=== PATIENT | female | born 1955 | race Caucasian/White ===

== ENCOUNTER → 2019-08-04 | Day surgery (SDC) | payer OTHER ==
[2019-08-03 16:11] LABS: BASOPHILS # (AUTO) 0.1 (0.0-0.1); BASOPHILS % 0.6 % (0.0-1.0); EOSINOPHILS # (AUTO) 0.3 (0.0-0.4); EOSINOPHILS % 3.7 % (0.0-6.0); HEMATOCRIT 42.3 % (34.2-44.1); HEMOGLOBIN 13.8 g/dL (12.0-16.0); LYMPHOCYTES % 22.9 % (18.0-39.1); MEAN CORPUSCULAR HEMOGLOBIN 27.9 pg (28-32); MEAN CORPUSCULAR HGB CONC 32.6 g/dL (31-35); MEAN CORPUSCULAR VOLUME 85.6 fL (81-99); MONOCYTES # (AUTO) 0.7 (0.2-0.8); MONOCYTES % 7.9 % (4.4-11.3); NEUTROPHILS # (AUTO) 5.7 (2.1-6.9); NEUTROPHILS % 63.9 % (38.7-80.0); PLATELET COUNT 250 x10e3/uL (140-360); RED BLOOD COUNT 4.94 x10e6/uL (3.6-5.1); RED CELL DISTRIBUTION WIDTH 14.6 % (11.7-14.4)
[2019-08-03 16:26] LABS: ANION GAP 14.9 mmol/L (8-16); BLOOD UREA NITROGEN 18 mg/dL (7-26); BUN/CREATININE RATIO 20 (6-25); CALCIUM 11.2 mg/dL (8.4-10.2); CARBON DIOXIDE 29 mmol/L (22-29); CHLORIDE 100 mmol/L (98-107); CREATININE, SERUM 0.89 mg/dL (0.57-1.11); EST GLOMERULAR FILTRATION RATE > 60 ML/MIN (60-); GLUCOSE 178 mg/dL (74-118); POTASSIUM 3.9 mmol/L (3.5-5.1); SODIUM 140 mmol/L (136-145)
--- NOTE | 2019-08-03 17:20 | Diagnostic Imaging Report ---
EXAMINATION: CHEST 2 VIEWS INDICATION: Pre-operative COMPARISON: None FINDINGS: LINES/TUBES:None LUNGS:The lungs are well-inflated. No focal consolidation or pulmonary edema. PLEURA:No pleural effusion or pneumothorax. MEDIASTINUM:The cardiomediastinal silhouette appears normal in size and shape. BONES/SOFT TISSUES:No acute osseous injury. Partially visualized cervical spine fusion hardware. ABDOMEN:No free air under the diaphragm. IMPRESSION: No focal pneumonia or pulmonary edema. Signed by: Tad Frausto MD on 08/03/2019 5:17 PM
[~2019-08-04] MED LIST: ASPIR 8181 MG PO; BUPIVACAINE HCL 0.5% INJ 30 ML VIAL INJ ONE; CELEBREX200 MG PO; CITALOPRAM HBR20 MG PO; CLINDAMYCIN PHOS 900MG/ 50ML 50 ML IV ONE; DEXAMETHASONE SOD PHOS INJ 4 MG/ML VIAL ONE; EPHEDRINE SULFATE INJ 50 MG/10 ML SYR ONE; FENTANYL CITRATE/PF 100MCG/2 ML INJ ONE; FIBER TABS625 MG PO; FOLIC ACID PO; GLIMEPIRIDE4 MG PO; KETOROLAC TROMETHAMINE 30 MG/ML VIAL ONE; LIDOCAINE HCL 2% LOCAL INJ 5 ML SDV VIAL INJ ONE; LOSARTAN-HCTZ1 EAC2 PO; LUTEIN20 M1 PO; MIDAZOLAM HCL 2 MG/2 ML VIAL ONE; MYRBETRIQ25 MG PO; NEOSTIGMINE 1 MG/ML 10ML VIAL ONE; ONDANSETRON HCL INJ 2MG/ML 2ML 2 MG/ML VIAL ONE; PROPOFOL IV EMULSION 10 MG/ML 20 ML VIAL ONE; SEVOFLURANE INHAL SOLN 250 ML PEN BTL ONE; STOOL SOFTENER1 EAC1 PO; VIT D3 PO
--- OUTSIDE RECORDS SUMMARY | 2019-08-04 07:41 | XMS REPORT ---
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 Allergies, Adverse Reactions, Alerts Allergy Name Allergy Type Status Severity Reaction(s) Onset Date Inactive Date Treating Clinician Comments Penicillins DA Active AK 2017-09-24 00:00:00 iodine DA Active SV 2017-09-24 00:00:00 Medications This patient has no known medications. Results Test Description Test Time Test Comments Text Results Atomic Results Result Comments CHEST 2 VIEWS 2019-08-03 17:16:00 [place] [address] Patient Name: SURINDER HARRISON MR #: [id number] : 1955 Age/Sex: 64/F Req #: [id number] Adm Physician: Ordered by: YOANNA AMBROSE DPM Report #: [id number] Location: OR Room/Bed: Procedure: [id number] DX/CHEST 2 VIEWS Exam Date: 08/03/19 Exam Time: 1628 REPORT STATUS: Signed EXAMINATION: CHEST 2 VIEWS INDICATION: Pre-operative COMPARISON: None FINDINGS: LINES/TUBES:None LUNGS:The lungs are well-inflated. No focal consolidation or pulmonary edema. PLEURA:No pleural effusion or pneumothorax. MEDIASTINUM:The cardiomediastinal silhouette appears normal in size and shape. BONES/SOFT TISSUES:No acute osseous injury. Partially visualized cervical spine fusion hardware. ABDOMEN:No free air under the diaphragm. IMPRESSION: No focal pneumonia or pulmonary edema. Signed by: Naomi Frausto MD on 08/03/2019 5:17 PM Dictated By: NAOMI FRAUSTO MD 16 Transcribed By: TSERING on 08/03/191716 COPY TO: YOANNA AMBROSE DPM
[2019-08-04 13:35] VITALS: BP 140/80
--- NOTE | 2019-08-05 02:13 | Operative Report ---
DATE OF PROCEDURE: 08/04/2019 SURGEON: Sushil Jacobson DPM ROOM NUMBERS: Outpatient. 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 TITLE OF THE OPERATION: Fusion first metatarsophalangeal joint, left foot. ANESTHESIA: General endotracheal. HEMOSTASIS: Left thigh tourniquets 350 mmHg. PROCEDURE IN DETAIL: The patient was taken to the operating room in a mildly sedated state, placed on the operating table in supine position. Following induction of general anesthetic, the left lower extremity was elevated to 60 degrees to exsanguinate before inflating the pneumatic thigh tourniquet to 350 mmHg to create hemostasis. Left lower extremity was placed on the operating table prior to performing the following procedure. Procedure #1 is the fusion first metatarsophalangeal joint of the left foot approximately 6 cm. Dorsal linear incision was made overlying dorsal medial aspect of first metatarsophalangeal joint of the left foot. The incision was deepened via sharp and blunt dissection on below the dorsal capsular structure. Care was taken to identify and retract all vital structures encountered. The head of the first metatarsal was delivered. The surgical site remodeled utilizing oscillating saw, a cup and cone reamer was used to remove the cartilage from the head of the first metatarsal and base of the proximal phalanx. There was severe degenerative joint disease with a grayish discoloration to watch cartilage remained and a significant inflammatory response around the joint. The area was irrigated with copious amounts of sterile saline solution. The joint was positioned in rectus with appropriate alignment. A mild degree of dorsiflexion was entertained, crossed K-wires were advanced across the joint to hold temporary position. A lag screw was used then dorsal plate as well with appropriate compression and combination of locking and nonlocking screws. This had been accomplished, the area was irrigated again with copious amounts of sterile saline solution. Deep closure was 3-0 Vicryl, subcutaneous closure with 4-0 Vicryl and skin closure 4-0 nylon. The areas of surgery then blocked with 0.5 Marcaine and no dexamethasone. The area was dressed appropriately. Posterior splint was applied. Patient remained nonweightbearing. Return to see me within one week postoperatively. Release pneumatic thigh tourniquet showed normal hyperemic flush to all digits of the left foot. The patient left the operating room with vital signs stable in apparent satisfactory condition, having tolerated both anesthetic and procedure very well. DEYVI Porter/DUSTIN /[id number]
== END | disposition home or self-care (01) ==
LOC: OR 07:38
PROVIDERS: ATTEND Podiatrist Foot Surgery
DX: M20.12 Hallux valgus (acquired), left foot (principal); M19.072 Primary osteoarthritis, left ankle and foot; E11.9 Type 2 diabetes mellitus without complications; I10 Essential (primary) hypertension; G47.33 Obstructive sleep apnea (adult) (pediatric); F32.9 Major depressive disorder, single episode, unspecified; Z88.0 Allergy status to penicillin; Z91.041 Radiographic dye allergy status; Z01.810 Encounter for preprocedural cardiovascular examination; Z01.812 Encounter for preprocedural laboratory examination; Z01.818 Encounter for other preprocedural examination; Z79.84 Long term (current) use of oral hypoglycemic drugs
CPT/HCPCS: 28750; 36415; 71046; 80048; 85025; 93005; C1713 ×4; J1100; J1885; J2001; J2250; J2405; J2704; J2710; J3010

== ENCOUNTER 2025-03-03 20:04 | Emergency (ER) | payer MEDICARE, OTHER ==
[~2025-03-03] VITALS: Ht 147.3 cm; Wt 68.5 kg
[~2025-03-03 20:04] MED LIST changes: -BUPIVACAINE HCL 0.5% INJ 30 ML VIAL INJ ONE; -CLINDAMYCIN PHOS 900MG/ 50ML 50 ML IV ONE; -DEXAMETHASONE SOD PHOS INJ 4 MG/ML VIAL ONE; -EPHEDRINE SULFATE INJ 50 MG/10 ML SYR ONE; -FENTANYL CITRATE/PF 100MCG/2 ML INJ ONE; -KETOROLAC TROMETHAMINE 30 MG/ML VIAL ONE; -LIDOCAINE HCL 2% LOCAL INJ 5 ML SDV VIAL INJ ONE; -MIDAZOLAM HCL 2 MG/2 ML VIAL ONE; -NEOSTIGMINE 1 MG/ML 10ML VIAL ONE; -ONDANSETRON HCL INJ 2MG/ML 2ML 2 MG/ML VIAL ONE; -PROPOFOL IV EMULSION 10 MG/ML 20 ML VIAL ONE; -SEVOFLURANE INHAL SOLN 250 ML PEN BTL ONE
[2025-03-03 20:10] VITALS: PULSE 70; RESP 16; TEMP 97.5
[2025-03-03] MEDS ORDERED: DOXYCYCLINE HY100 MG PO (20:18)
[2025-03-03] MEDS ORDERED: BACTRIM DS TAB1 EACH PO (20:18)
[2025-03-03 20:24] VITALS: BP 143/77; PULSE 86; RESP 17; O2SAT 100
== END 2025-03-03 20:30 | disposition home or self-care (01) ==
LOC: ER 20:15
DX: M20.41 Other hammer toe(s) (acquired), right foot (principal); I10 Essential (primary) hypertension; F41.9 Anxiety disorder, unspecified; F32.A Depression, unspecified; R73.03 Prediabetes; Z86.14 Personal history of Methicillin resistant Staphylococcus aureus infection
CPT/HCPCS: 99282